=== PATIENT | male | born 1980 | race Caucasian/White ===

== ENCOUNTER 2017-10-31 15:31 | Emergency (ER) | payer SELFPAY ==
[2017-10-31] MEDS ORDERED: Ketorolac Tromethamine 30 MG/ML VIAL ONE (15:51)
[2017-10-31] MEDS ORDERED: Ondansetron HCl/PF 4 MG/2 ML Vial ONE (15:51)
[2017-10-31 16:10] LABS: Bilirubin Negative (Negative); Blood, Urine Trace (Negative); Clarity Clear (Clear); Glucose, Urine (Dipstick) Negative (Negative); Leukocyte Trace (Negative); Nitrite Negative (Negative); Protein, Urine (Dipstick) Negative (Neg-Trace); Specific Gravity, Urine 1.025 (1.005-1.030); Urobilinogen 0.2 mg/dL (0.2-1.0)
[2017-10-31 16:11] LABS: Bacteria/HPF 1+ HPF (None Seen); Squamous Epithelial 0-3 HPF (0-3)
[2017-10-31 16:12] LABS: Hyaline Casts/LPF 0-3 HYALINE CAST LPF (0-3 Hyaline); Other Casts/LPF 0-3 COARSE GRAN LPF (0-3 Hyaline)
[2017-10-31 16:20] LABS: Band 1 % (5-11); Hemoglobin 15.6 g/dL (14.0-18.0); Lymphocytes 22 % (21-51); MDiff Complete? YES; Mean Corpuscular HGB CONC 34.2 g/dL (32.0-36.0); Mean Corpuscular Hemoglobin 29.1 pg (27.0-31.0); Mean Corpuscular Volume 85.3 fl (80.0-94.0); Mean Platelet Volume 7.7 fL (7.4-10.4); Monocytes 3 % (0-10); Neutrophil 70 % (42-75); PLT Morphology Comment Appears Adequate; Platelet Count 279 thou/uL (130-400); RBC Distribution Width 11.5 % (11.5-14.5); Reactive Lymphocytes 2 % (0-10); Red Blood Cell (RBC) Count 5.37 mill/uL (4.70-6.10); White Blood Cell (WBC) Count 12.9 thou/uL (4.8-10.8)
[2017-10-31 16:22] LABS: ALT (SGPT) 30 U/L (8-55); AST (SGOT) 19 U/L (5-34); Albumin 4.7 g/dL (3.5-5.0); Alkaline Phosphatase 83 U/L (40-150); Anion Gap 14 mmol/L (10-20); BUN (Urea Nitrogen) 15 mg/dL (8.9-20.6); Bilirubin, Total 0.6 mg/dL (0.2-1.2); Calc. Creatinine Clearance 0 mL/min (70-130); Calcium 9.9 mg/dL (7.8-10.44); Carbon Dioxide 23 mmol/L (22-29); Chloride 108 mmol/L (98-107); Estimated GFR-MDRD Greater than 90; Globulin 3.1 g/dL (2.4-3.5); Glucose 98 mg/dL (70-105); Lipase 13 U/L (8-78); Potassium 4.1 mmol/L (3.5-5.1); Protein, Total 7.8 g/dL (6.0-8.3); Sodium 141 mmol/L (136-145)
[2017-10-31] MEDS ORDERED: Mag-Al Plus 1200 MG/1200 MG/120 MG/30 ML UDCUP ONE (16:37)
[2017-10-31] MEDS ORDERED: Lidocaine Viscous Sol 2% 15 ml UD Cup ONE (16:37)
--- NOTE | 2017-10-31 16:41 | CT ---
CT OF THE ABDOMEN AND PELVIS WITHOUT IV CONTRAST: 10/31/17 INDICATION: History of left sided abdominal and back pain for eight months with paraumbilical abdominal pain. COMPARISON: None. FINDINGS: Lung bases are clear. Unopacified liver, spleen, pancreas and adrenal glands appear within normal limits. There is a normal appendix in the right lower quadrant. No definite ureteral calculus is evident. There is a 3 mm ston e within the mid to inferior pole of the left kidney. The bladder is decompressed. There are a few scattered diverticula involving the colon without eviden ce of active diverticulitis. There is a normal appendix in the right lower quadrant. Small bowel is of normal caliber. No definite acute osseous abnormality is evident. IMPRESSION: 1. Left nephrolithiasis. 2. No ureteral calculus or hydronephrosis. 3. Mild diverticulosis of the colon without evidence of active diverticulitis. 4. Normal appendix. POS: [facility]
== END 2017-10-31 16:50 | disposition home or self-care (01) ==
LOC: SCSER 15:31
DX: R10.12 Left upper quadrant pain (principal); Z87.891 Personal history of nicotine dependence
CPT/HCPCS: 74176; 80053; 81003; 81015; 83690; 85025; 87086; 96374; 96375; J1885; J2405

== ENCOUNTER 2018-11-28 21:01 | Emergency (ER) | payer SELFPAY ==
--- NOTE | 2018-11-28 21:55 | RAD ---
XR Foot Rt 3 View STANDARD: 11/28/2018 9:32 PM CLINICAL INDICATION: Injury, pain COMPARISON: None. FINDINGS: Fracture:No fracture. Arthropathy:None of significance. Incidental findings:None of significance. IMPRESSION: 1. No acute osseous abnormality.
--- NOTE | 2018-11-28 23:38 | CT ---
CT Brain WO Con: 11/28/2018 9:32 PM CLINICAL HISTORY: Injury. COMPARISON: None. FINDINGS: Hemorrhage: None. Ventricular system: Normal in size and morphology for the patient's age. Cerebral parenchyma: Normal Midline shift: None. Mass: No mass effect. Calvarium: Normal. Visualized Paranasal sinuses: Clear. IMPRESSION: No acute intracranial abnormalities.
--- NOTE | 2018-11-28 23:40 | CT ---
CT Cervical Spine WO Con Indication: Pain/Injury COMPARISON: None FINDINGS: Acute fracture/subluxation: None Spinal alignment: No acute malalignment. Vertebral body heights: Maintained. Cervical spine degenerative change: Mild IMPRESSION: No acute osseous abnormality.
== END 2018-11-28 23:50 | disposition home or self-care (01) ==
LOC: ERS 21:01
DX: S16.1XXA Strain of muscle, fascia and tendon at neck level, initial encounter (principal); S90.31XA Contusion of right foot, initial encounter; Z87.891 Personal history of nicotine dependence; V43.52XA Car driver injured in collision with other type car in traffic accident, initial encounter
CPT/HCPCS: 70450; 72125